=== PATIENT | female | born 1935 | race Caucasian/White ===

== ENCOUNTER 2017-07-31 08:20 | Inpatient (IN) | payer MEDICARE ==
[~2017-07-31] VITALS: Ht 157.5 cm; Wt 57.4 kg
[~2017-07-31 08:20] MED LIST: AMIO200T PO; ASPI1CAP PO; BUME2TAB PO; BYST10TA2 PO; CALC0.25 PO; HYDR-3133 PO; HYDR-3580 PO; HYDR-3799 PO; LATA0.002 EACH EYE; LEVO.075 PO; LOVA20TA PO; OCUVTAB4 PO; PANT40TA3 PO; RIVA4.5C PO
[2017-07-31] MEDS ORDERED: ceFAZolin 2 GM/DEX PREMIX 50 ML IV SCH (09:45)
[2017-07-31] MEDS ORDERED: CHLORHEXIDINE GLUCONATE 2 % 1 PACK (2 CLOTHS) TOPICAL PRN (09:45)
[2017-07-31] MEDS ORDERED: SODIUM CHLORID 0.9% 500 ML IV PRN (09:45)
[2017-07-31] MEDS ORDERED: LACTATED RINGER'S 1000 ML IV PRN (09:45)
[2017-07-31] MEDS ORDERED: POVIDONE IODINE 5% (ANTISEPSIS KIT) 4 APPLICATIONS EACH NARE PRN (09:45)
[2017-07-31] MEDS ORDERED: METOPROLOL TARTRATE 25 MG TAB PO PRN (09:45)
[2017-07-31] MEDS ORDERED: NUCY50TA10 PO (10:12)
[2017-07-31] MEDS ORDERED: LIDO 1% I-DERMAL (10:12)
[2017-07-31] MEDS ORDERED: IPRA0.06 EACH NARE (10:15)
[2017-07-31 10:40] LABS: AUTOMATED NEUTROPHIL # 2.5 TH/MM3 (1.8-7.7); EOSINOPHIL % 0.5 % (0.0-4.0); HEMATOCRIT 28.8 % (35.0-46.0); HEMOGLOBIN 9.8 GM/DL (11.6-15.3); LYMPH % 17.3 % (9.0-44.0); LYMPHOCYTE # 0.6 TH/MM3 (1.0-4.8); MEAN CELL VOLUME 95.3 FL (80.0-100.0); MEAN CORPUSCULAR HEMOGLOBIN 32.3 PG (27.0-34.0); MEAN CORPUSCULAR HGB CONC 33.9 % (32.0-36.0); MEAN PLATELET VOLUME 8.6 FL (7.0-11.0); MONO % 9.8 % (0.0-8.0); MONOCYTE # 0.3 TH/MM3 (0-0.9); NEUT % 71.4 % (16.0-70.0); PLATELET COUNT 196 TH/MM3 (150-450); RED BLOOD COUNT 3.02 MIL/MM3 (4.00-5.30); RED CELL DISTRIBUTION WIDTH 14.7 % (11.6-17.2); WHITE BLOOD COUNT 3.5 TH/MM3 (4.0-11.0)
[2017-07-31 11:02] LABS: BICARBONATE 24.6 MEQ/L (21.0-32.0); CALCIUM 9.2 MG/DL (8.5-10.1); CREATININE 1.68 MG/DL (0.50-1.00)
[2017-07-31] MEDS ORDERED: BUPIVACAINE HCL PF 0.25% 30 ML VIAL INFIL ONE (12:09)
[2017-07-31] MEDS ORDERED: DO NOT ADM ANY ANTICOAGULANT DRUGS PRN (13:00)
[2017-07-31] MEDS ORDERED: *morphine SULFATE 4 MG/ML PERIprocedure ONLY ONE ×3 (13:22→16:42)
[2017-07-31] MEDS ORDERED: MEPERIDINE HCL 50 MG/ML VIAL ONE (13:26)
--- NOTE | 2017-07-31 13:27 | PD.OP ---
cc: Brennon Penaloza MD Operative Report Date of Surgery: July 31, 2017 Preoperative Diagnosis: Difficulty eating, large hiatal hernia Postoperative Diagnosis: Same Procedure: Laparoscopic repair hiatal hernia with [place] bio a mesh and partial fundoplication Anesthesia: General endotracheal Surgeon: Brennon Penaloza Train Braker(s): Andrea Ozuna Operation and Findings: Indications for procedure This is a very pleasant 82-year-old woman who was recently diagnosed with large hiatal hernia and gastroesophageal reflux disease. She has had increasing chest and abdominal pain but has had a negative impact on her quality of life. She has not been able to eat normally, has been losing weight , and desires operative intervention. CT scan and upper GI show 1/2-2/3 of her stomach in her chest. She has had previous abdominal surgery with bowel resection and open cholecystectomy. Intraoperative findings Significant scar tissue on the right side of the abdomen with loops of bowel and omental adhesions. Huge hiatal hernia. Primary approximation, bioabsorbable mesh, partial fundoplication. Complete mobilization of the GE junction at least 4 cm beneath the diaphragmatic hiatus. Estimated blood loss 20 mL Description of procedure in detail The patient was identified as Earl Thomas, taken to the operating room placed in supine position. Sequential compression device were placed on bilateral lower extremities. Following induction of adequate general endotracheal anesthesia the patient's abdomen was prepped and draped in usual sterile fashion with Betadine. A timeout procedure was performed. Following completion timeout procedure everyone's satisfaction within the room local anesthetic was infiltrated the proposed initial trocar site. Due to previous surgeries and surgical scars left lateral subcostal position was selected. A 2 cm transverse incision was carried out the scalpel dissection continued posteriorly using a hemostat through the muscular layers of the abdominal wall. Surgeon's finger allowed for safe entry into the peritoneal cavity. The applied medical balloon was sewn trochars placed in the peritoneal cavity its balloon inflated CO2 insufflation to level of 15 mmHg ensued. Patient was placed in a steep reverse Trendelenburg position. 3 upper abdominal 5 mm trochars were then strategically placed to avoid omental and small bowel adhesions. Some of these were taken down medially avoiding any adhesions of the bowel to the anterior abdominal wall. This created space for the surgery. It did however preclude placement of a traditional right lateral lower lateral abdominal wall trocar for placement of the left lateral lobe of her chart liver retractor. Instead the Kamran retractor was used through separate small incision in the subxiphoid position and this allowed for retraction left lower lobe the liver anteriorly and was held in place with a robot arm. Attention was then turned to taking down the gastrohepatic ligament which was done using the harmonic scalpel. A large arterial vascular structure likely left gastric artery was in the area of normal dissection it was identified and avoided. Attention was turned to creating a plane between the peritoneum/ hernia sac and the patient's pleura on the right side. Right side diaphragmatic crura were identified. Dissection continued across the midline. Attention was then turned to taking down the short gastric vessels along the superior greater curvature of the stomach. This was performed using the harmonic scalpel, and allowed for identification of left diaphragmatic crura. Hiatal hernia sac was removed in its entirety from the mediastinum and brought down into the abdominal cavity. The esophagus was further mobilized using the harmonic scalpel. A posterior window to the esophagus was created with these safe dissection and the wilson flex gonzales's hook retractor was placed around the esophagus and used to retract the GE junction down below the diaphragmatic hiatus. In doing so further attachments were taken down to allow for lengthening the esophagus and allowing the GE junction to be forced to 5 cm below the diaphragmatic hiatus. The fundus of the stomach was then brought through the posterior window of the at the GE junction. To see sutures of 0 Ethibond using the suture medical assistant instructor device were used to approximate the diaphragmatic crura posteriorly. The crura were not pliable. They did not have great integrity. Further suture placement posteriorly would only resulted in injury and tearing of the musculature. A single suture was of 0 Ethibond was placed anteriorly to approximate the anterior fascia. As photographs was taken. The diaphragmatic defect was decreased by about half by this maneuver. The [place] bio a U-shaped mesh was then customized in size moistened rolled and placed into the peritoneal cavity. He was placed in a reverse C position around the esophagus reinforcing the diaphragmatic repair. Sutures were placed at the 10:00 and 6:00 positions to the diaphragmatic crura. Following this a 36 [place]ian bougie was placed by the nurse front end architect without difficulty down the esophagus into the stomach and left in position. The fundus of the stomach through that posterior window was then sutured to the left side diaphragmatic crura and bio a mesh using 2 interrupted 0 Ethibond sutures. 2 sutures were placed in the from the stomach partial-thickness right side of esophagus. The left side of the stomach was then sutured to the left side of the esophagus full -thickness stomach to partial thickness esophagus in 2 [address] again using 0 Ethibond suture. A suture was placed from the wrap on the left side to the bio a mesh for further fixation. Autograft were taken during the different steps of this repair. 5 cc of Episeal was then used for adherence of the bile way to the undersurface of the diaphragm. Photograph was taken and completed repair. The Kamran retractor was removed from underneath the left lateral lobe the liver and there is no evidence of complication to the liver. Small amount of bloody drainage was suctioned out. The area of previous adhesio lysis was examined there was no evidence of injury. Trochars were removed under direct visualization there was no evidence of bleeding from trocar sites. The abdomen was desufflated actively through the left lateral subcostal port which was then removed. Posterior fashion peritoneum were closed with a single 0 Vicryl suture [id number]. Anterior fascia was closed with 2-0 Vicryl figure-of- eight sutures. The skin incisions were approximated with 4-0 Monocryl subcuticular sutures. Dressings were applied with Mastisol and half-inch brown Steri-Strips. Patient tolerated the procedure without apparent complication. Sponge needle and instrument counts were correct at the end of the case. Patient was transported to PACU in stable condition. Brennon Penaloza MD July 31, 2017 13:27
[2017-07-31] MEDS ORDERED: Post-op Orders (for Pharmacy) XX ONE (13:30)
[2017-07-31] MEDS ORDERED: ACETAMINOPHEN/HYDROcodone 325 MG/5 MG TAB PO PRN (13:30)
[2017-07-31] MEDS ORDERED: ONDANSETRON HCL 4 MG/2 ML VIAL IV PUSH PRN (13:30)
[2017-07-31] MEDS ORDERED: diphenhydrAMINE HCL 25 MG CAP PO PRN (13:30)
[2017-07-31] MEDS ORDERED: hydrOXYzine HCL 25 MG TAB PO PRN (13:30)
[2017-07-31] MEDS: ACETAMINOPHEN 1000 MG/100 ML 100 ML IV SCH ×2 (14:00→20:36)
[2017-07-31] MEDS: LACTATED RINGER'S 1000 ML INJ 1,000 ML IV SCH (15:00)
[2017-07-31] MEDS ORDERED: MORPHINE SULFATE 4 MG/ML INJ IV PRN (15:15)
[2017-07-31] MEDS ORDERED: RIVASTIGMINE 4.5 MG PO SCH (18:00)
[2017-07-31] MEDS ORDERED: PT:IPRATROPRIUM NASAL SPRAY NASAL SCH (18:00)
[2017-07-31] MEDS ORDERED: RIVASTIGMINE 1.5 MG PO SCH (18:00)
[2017-07-31] MEDS ORDERED: NON-FORMULARY DRUG (Ipratropium Nasal 1 SPRAY) EACH NARE SCH (18:00)
[2017-07-31 18:27] VITALS: BP 165/72; PULSE 56; RESP 19; TEMP 97.3; O2SAT 91
[2017-07-31 20:00] VITALS: BP 166/79; PULSE 54; RESP 18; TEMP 97.5; O2SAT 92
[2017-07-31] MEDS: hydrALAZINE HCL 25 MG TAB PO SCH (20:35)
[2017-07-31] MEDS ORDERED: NON-FORMULARY DRUG (Multiple Vitamins W/ Minerals (Preservision Areds) 1 TAB) PO SCH (21:00)
[2017-07-31] MEDS ORDERED: PT PRESERVISION AREDS PO SCH (21:00)
[2017-07-31] MEDS ORDERED: NEBIVOLOL 10 MG TAB PO SCH (21:00)
[2017-07-31] MEDS ORDERED: LATANOPROST 0.005% OPHT SOLN 2.5 ML BTL EACH EYE SCH (21:00)
[2017-08-01] VITALS: BP 145/69; PULSE 56; RESP 18; TEMP 97.7; O2SAT 95
[2017-08-01] MEDS: ACETAMINOPHEN 1000 MG/100 ML 100 ML IV SCH ×2 (02:50→09:08)
[2017-08-01 04:00] VITALS: BP 139/67; PULSE 53; RESP 18; TEMP 97.9; O2SAT 96
[2017-08-01] MEDS: LACTATED RINGER'S 1000 ML INJ 1,000 ML IV SCH (04:58)
[2017-08-01] MEDS ORDERED: LEVOTHYROXINE SODIUM 75 MCG TAB PO SCH (06:00)
--- NOTE | 2017-08-01 07:25 | EKG ---
Date Performed: 07/31/2017 Time Performed: 08:50:46 PTAGE: 82 years EKG: SUPRAVENTRICULAR BRADYCARDIA POSSIBLE RIGHT VENTRICULAR HYPERTROPHY ABNORMAL ECG NO PREVIOUS TRACING DOCTOR: Elian Dominguez Interpretating Date/Time 08/01/2017 07:20:55
[2017-08-01 08:00] VITALS: BP 130/65; PULSE 55; RESP 17; TEMP 97.5; O2SAT 95
[2017-08-01] MEDS ORDERED: CALCITRIOL 0.25 MCG CAP PO SCH (09:00)
[2017-08-01] MEDS ORDERED: BUMETANIDE 1 MG TAB PO SCH (09:00)
[2017-08-01] MEDS ORDERED: AMIODARONE 200 MG TAB PO SCH (09:00)
[2017-08-01] MEDS ORDERED: PANTOPRAZOLE SOD 40 MG DELAYED RELEASE TAB PO SCH (09:00)
[2017-08-01] MEDS ORDERED: PRAVASTATIN SOD 20 MG TAB PO SCH (09:00)
[2017-08-01] MEDS: hydrALAZINE HCL 25 MG TAB PO SCH (09:09)
[2017-08-01] MEDS ORDERED: INFLUENZA VIRUS VACCINE (QUADRIVALENT) 0.5 ML SYR IM ONE (10:00)
[2017-08-01 10:13] VITALS: O2SAT 97
[2017-08-01 12:00] VITALS: BP 132/63; PULSE 56; RESP 18; TEMP 97.6; O2SAT 95
[2017-08-01] MEDS ORDERED: ENOXAPARIN SODIUM 30 MG/0.3 ML SYRINGE SQ SCH (13:00)
[2017-08-01] MEDS ORDERED: NUCY50TA10 PO (15:46)
--- NOTE | 2017-08-01 15:48 | HHI.DS ---
Discharge Summary Admission Date July 31, 2017 at 13:30 Discharge Date: August 01, 2017 Admitting Diagnosis Difficulty eating, large hiatal hernia, gastroesophageal reflux disease Procedures Laparoscopic repair hiatal hernia with [place] bio a mesh and partial fundoplication Brief History Unfortunate 82-year-old woman who suffered with severe abdominal and chest pains and difficulty with eating. She has had significant weight loss. Findings on workup demonstrates a large hiatal hernia. She was desirous of operative repair. CBC/BMP: 07/31/17 0955 07/31/17 0955 Significant Findings Laboratory Tests Test 07/31/17 09:55 White Blood Count 3.5 TH/MM3 (4.0-11.0) Red Blood Count 3.02 MIL/MM3 (4.00-5.30) Hemoglobin 9.8 GM/DL (11.6-15.3) Hematocrit 28.8 % (35.0-46.0) Neutrophils (%) (Auto) 71.4 % (16.0-70.0) Monocytes (%) (Auto) 9.8 % (0.0-8.0) Lymphocytes # (Auto) 0.6 TH/MM3 (1.0-4.8) Blood Urea Nitrogen 26 MG/DL (7-18) Creatinine 1.68 MG/DL (0.50-1.00) Estimat Glomerular Filtration Rate 29 ML/MIN (>89) PE at Discharge The lungs are clear. Heart sounds are regular. Her abdominal incisions are all healing well but he Steri-Strips. There is no sign of erythema. She has normal bowel sounds. Her extremities are nonedematous. Hospital Course Patient was admitted through same-day surgery on July 31, 2017 and taken to the operating room for the above-mentioned surgery. Postoperatively she is recovered very well. She is swallowing liquids without difficulty. She has no acid reflux or heartburn. She is walked the halls with her daughter. She is use the bathroom. She desires discharge home. Her pain is being controlled by IV Tylenol. Pt Condition on Discharge: Good Discharge Disposition: Discharge Home Discharge Instructions DIET: Follow Instructions for: Full Liquid Diet Additional Diet Instructions: May progress diet to soft easy to swallow foods. Eat small amounts at a time. Sit upright for meals. Activities you can perform: Shower Only-No Bath Activities to Avoid: Strenuous Activity, Driving Brennon Penaloza MD August 01, 2017 15:48
[2017-08-01] MEDS ORDERED: DIPYRIDAMOLE/ASPIRIN 200 MG/25 MG CAP PO SCH (21:00)
== END 2017-08-01 17:06 | disposition home or self-care (01) | DRG 328 ==
LOC: HSDC 08:20 → HSDI 13:30 → N07B 18:22
PROVIDERS: ADMIT Surgery Trauma Surgery; ATTEND Surgery Trauma Surgery
PROC: 0BUT4JZ Supplement Diaphragm with Synthetic Substitute, Percutaneous Endoscopic Approach (ICD-10-PCS; principal; 2017-07-31 10:56)
PROC: 0DV44ZZ Restriction of Esophagogastric Junction, Percutaneous Endoscopic Approach (ICD-10-PCS; 2017-07-31 10:56)
DX: K44.9 Diaphragmatic hernia without obstruction or gangrene (principal); I48.91 Unspecified atrial fibrillation; I10 Essential (primary) hypertension; R63.4 Abnormal weight loss; Z68.23 Body mass index [BMI] 23.0-23.9, adult; R63.3 Feeding difficulties; E78.5 Hyperlipidemia, unspecified; G47.30 Sleep apnea, unspecified; Z86.73 Personal history of transient ischemic attack (TIA), and cerebral infarction without residual deficits; E03.9 Hypothyroidism, unspecified; K58.9 Irritable bowel syndrome, unspecified; K21.9 Gastro-esophageal reflux disease without esophagitis; H40.9 Unspecified glaucoma
CPT/HCPCS: 80048; 85025; 86850; 86900; 86901; 93005; J0131; J0690; J2175; J2270; J3010; J7120